=== PATIENT | female | born 1970 | race Hispanic/Latino ===

== ENCOUNTER 2018-01-06 23:03 | Emergency (ER) | payer SELFPAY | END 2018-01-06 23:56 | disposition home or self-care (01) | LOC: ERS 23:03 | DX: S06.0X0A Concussion without loss of consciousness, initial encounter (principal); F17.210 Nicotine dependence, cigarettes, uncomplicated; W22.03XA Walked into furniture, initial encounter | CPT/HCPCS: 99284 ==